=== PATIENT | male | born 1945 | race African-American/Black ===

== ENCOUNTER 2023-01-01 05:25 | Inpatient (IN) ==
[2023-01-01] MEDS ORDERED: LEVOFLOXACIN INJ 500 MG/100 ML PREMIX IV ONE (06:00)
[2023-01-01 06:41] LABS: Bilirubin,Urine Negative (Negative); Blood, Urine Negative (Negative); Glucose,Urine (UA) Negative (Negative); Ketones,Urine Negative (Negative); Nitrite,Urine Positive (Negative); Protein,Urine Negative (Negative); Urine Appearance Clear (Clear); Urine Color Dark Yellow (Yellow); Urine Specific Gravity 1.025 (1.001-1.035)
[2023-01-01 06:41] LABS: Basophils % 0.8 % (0.0-0.8); Eosinophils # 0.3 10*3/uL (0.0-0.87); Eosinophils % 5.7 % (0.00-10.9); Hematocrit 42.6 VOL% (42.0-52.0); Hemoglobin 14.3 GM/DL (14.0-18.0); Immature Granulocytes % 0.2 %; Immature Granulocytes Absolute 0.01 #; Lymphocytes # 1.9 10*3/uL (1.4-4.0); Lymphocytes % 36.7 % (21.2-54.2); Mean Corpuscular HGB Conc 33.6 GM/DL (32-36); Mean Corpuscular Volume 92.2 FL (87-102); Mean Platelet Volume 10.5 FL (9.6-12.0); Monocytes # 0.7 10*3/uL (0.11-0.8); Monocytes % 12.7 % (1.7-12.7); Neutrophils % 43.9 % (38.7-73.9); Platelet Count 188 T/CUMM (130-400); Red Blood Count 4.62 MC/CUMM (3.8-5.5); Red Cell Distribution Width 12.2 % (9.3-17.3); White Blood Count 5.26 T/CUMM (4-12)
[2023-01-01] MEDS ORDERED: DIAZEPAM 5 MG TABLET PO ONE (06:46)
[2023-01-01] MEDS ORDERED: FAMOTIDINE 20 MG TABLET PO ONE (06:46)
[2023-01-01 06:53] LABS: Calcium 8.8 MG/DL (8.5-10.1); Osmolality,Calculated 277.5 MOS/KG (273-304); Potassium 3.4 MMOL/L (3.5-5.1)
[2023-01-01] MEDS ORDERED: LACTATED RINGERS 1,000 ML IV SCH (07:00)
[2023-01-01] MEDS ORDERED: MIDAZOLAM 2 MG/2 ML VIAL ONE (08:48)
[2023-01-01] MEDS ORDERED: SUCCINYLCHOLINE 200 MG/10 ML VIAL ONE (08:48)
[2023-01-01] MEDS ORDERED: fentaNYL 100 MCG/2 ML VIAL ONE (08:48)
[2023-01-01] MEDS ORDERED: LIDOCAINE 2% 5 ML VIAL ONE (08:48)
[2023-01-01] MEDS ORDERED: ONDANSETRON 4 MG/2 ML VIAL ONE (08:48)
[2023-01-01] MEDS ORDERED: SEVOFLURANE 1 UNIT/15 MINUTE INH ONE (08:48)
[2023-01-01] MEDS ORDERED: ROCURONIUM 50 MG/5 ML VIAL IV ONE (08:48)
[2023-01-01] MEDS ORDERED: propofoL 200 MG/20 ML VIAL IV ONE (08:48)
[2023-01-01] MEDS ORDERED: GLYCOPYRROLATE 0.4 MG/2 ML VIAL ONE (09:18)
[2023-01-01] MEDS ORDERED: ACETAMINOPHEN INJ 1,000 MG/100 ML VIAL IV ONE ×2 (09:31)
[2023-01-01] MEDS ORDERED: PHENYLEPHRINE 1 MG/10 ML SYRINGE IV ONE ×2 (09:36→09:55)
[2023-01-01] MEDS ORDERED: LACTATED RINGERS 1,000 ML IV ONE (10:12)
[2023-01-01] MEDS ORDERED: ONDANSETRON 4 MG/2 ML VIAL IV PRN (10:39)
[2023-01-01] MEDS: SODIUM CHLORIDE 0.9% 1,000 ML IV SCH ×2 (17:36→20:00)
[2023-01-02 05:08] LABS: Basophils % 0.4 % (0.0-0.8); Eosinophils # 0.3 10*3/uL (0.0-0.87); Hematocrit 38.2 VOL% (42.0-52.0); Immature Granulocytes % 0.3 %; Immature Granulocytes Absolute 0.02 #; Lymphocytes # 1.4 10*3/uL (1.4-4.0); Lymphocytes % 18.8 % (21.2-54.2); Mean Corpuscular Volume 92.9 FL (87-102); Mean Platelet Volume 10.8 FL (9.6-12.0); Monocytes # 0.7 10*3/uL (0.11-0.8); Monocytes % 10.1 % (1.7-12.7); Neutrophils % 66.4 % (38.7-73.9); Platelet Count 169 T/CUMM (130-400); Red Blood Count 4.11 MC/CUMM (3.8-5.5); Red Cell Distribution Width 11.9 % (9.3-17.3); White Blood Count 7.22 T/CUMM (4-12)
[2023-01-02 05:19] LABS: Calcium 8.1 MG/DL (8.5-10.1); Potassium 3.7 MMOL/L (3.5-5.1)
[2023-01-02] MEDS: SODIUM CHLORIDE 0.9% 1,000 ML IV SCH ×2 (06:08→18:23)
[2023-01-02] MEDS: VERAPAMIL SR 120 MG TABLET PO SCH (08:55)
[2023-01-02] MEDS: TRIAMTERENE/HCTZ 37.5-25 MG CAPSULE PO SCH (08:59)
[2023-01-03] MEDS: SODIUM CHLORIDE 0.9% 1,000 ML IV SCH ×2 (04:26→14:00)
[2023-01-03] MEDS: VERAPAMIL SR 120 MG TABLET PO SCH (09:11)
[2023-01-03] MEDS: TRIAMTERENE/HCTZ 37.5-25 MG CAPSULE PO SCH (09:11)
[2023-01-03 11:51] VITALS: BP 119/57
== END 2023-01-03 14:00 | disposition home or self-care (01) | DRG 713 ==
LOC: N.OR 05:25 → N.SDSINP 05:26 → N.3E 10:39
PROVIDERS: ADMIT Urology; ATTEND Urology